=== PATIENT | female | born 1950 | race Caucasian/White ===

== ENCOUNTER 2023-10-01 13:21 | Outpatient (RCR) | payer MEDICARE, OTHER, SELFPAY | END 2023-10-01 23:59 | disposition home or self-care (01) | LOC: ROT 13:21 | PROVIDERS: ATTENDING PHYSICIAN Nurse Practitioner Family | DX: G20.C Parkinsonism, unspecified (principal); I69.320 Aphasia following cerebral infarction; I69.322 Dysarthria following cerebral infarction; I69.391 Dysphagia following cerebral infarction; R13.12 Dysphagia, oropharyngeal phase; R26.89 Other abnormalities of gait and mobility | CPT/HCPCS: 92507; 92523; 92526; 92610; 97010; 97110; 97116; 97140; 97163; 97167; 97530; 97535 ==

== ENCOUNTER 2023-10-30 09:38 | Outpatient (RCR) | payer MEDICARE, OTHER, SELFPAY | END 2023-10-30 23:59 | disposition home or self-care (01) | LOC: ROT 09:38 | PROVIDERS: ATTENDING PHYSICIAN Nurse Practitioner Family | DX: G20.C Parkinsonism, unspecified (principal); I69.398 Other sequelae of cerebral infarction; Z73.6 Limitation of activities due to disability; R26.9 Unspecified abnormalities of gait and mobility; I69.320 Aphasia following cerebral infarction; R47.1 Dysarthria and anarthria; R13.12 Dysphagia, oropharyngeal phase | CPT/HCPCS: 92507; 92526; 97010; 97110; 97116; 97140; 97530; 97535 ==

== ENCOUNTER 2023-11-25 12:00 | Outpatient (RCR) | payer MEDICARE, OTHER, SELFPAY | END 2023-11-26 07:38 | disposition home or self-care (01) | LOC: ROT 12:00 | PROVIDERS: ATTENDING PHYSICIAN Nurse Practitioner Family | DX: G20.C Parkinsonism, unspecified (principal); I69.320 Aphasia following cerebral infarction; R47.1 Dysarthria and anarthria; R13.12 Dysphagia, oropharyngeal phase; Z73.6 Limitation of activities due to disability; R26.89 Other abnormalities of gait and mobility; I69.312 Visuospatial deficit and spatial neglect following cerebral infarction; I69.328 Other speech and language deficits following cerebral infarction | CPT/HCPCS: 92507; 92526; 97010; 97110; 97116; 97140; 97530; 97535 ==

== ENCOUNTER 2024-03-20 23:05 | Emergency (ER) | payer MEDICARE, OTHER, SELFPAY ==
[2024-03-20 23:11] VITALS: BP 98/48
[2024-03-21] VITALS: BP 118/47
--- NOTE | 2024-03-21 | ED.GENMED ---
History of Present Illness
<Mariah Edwards MD, Resident - Last Filed: 03/21/24 01:05>
General
Chief Complaint: Change Level of Consciousness
Time Seen by Provider: 03/20/24 23:42
History of Present Illness
History of Present Illness:
74-year-old female presented to the ED with history of Parkinson disease and a CVA. Her family brought her in because she was not responding as usual after starting a new medication, Seroquel, prescribed by neurologist. Nephew has been taking care
of patient for today. She currently accompanied by her 2 daughters. 1 daughter states that the patient's current condition is at her baseline, but she becomes somewhat nonresponsive after taking the new medication which helps to calm her down.
The patient is not very agitated but occasionally pulls at stuffs or grabs stuffs mainly due to hallucination. She is alert and able to communicate. She is mildly aphasic due to CVA.
Phy Exam
<Mariah Edwards MD, Resident - Last Filed: 03/21/24 01:05>
Physical Exam
Physical Exam:
74-year-old elderly female, mildly aphasic but able to follow commands and answer few questions.
Cardiovascular Exam
Cardiovascular Exam: regular rate/rhythm and no murmur
Pulmonary Exam
Pulmonary Exam: lungs clear
Gastrointestinal Exam
Gastrointestinal Exam: non tender, soft and non distended
Neurological Exam
Neurological Exam: alert and motor weakness (chronic on left sided due to history of stroke )
Course
<Mariah Edwards MD, Resident - Last Filed: 03/21/24 01:05>
Orders/Labs/Results
Orders:
Orders
03/21/24 00:06
Electrocardiogram (*1) Urgent
Reason for Study: QTc Monitoring
Bedside Glucose- Treatment ONCE
EKG- Treatment ONCE
Abnormal Lab Results
03/21/24
00:50
POC Glucose 133 H mg/dl
(70-99)
Vital Signs
Initial and Last Documented VS:
Initial Vital Signs
Temp Pulse Resp BP Pulse Ox
98.1 F 55 16 98/48 98
03/20/24 23:11 03/20/24 23:11 03/20/24 23:11 03/20/24 23:11 03/20/24 23:11
Last Documented Vital Signs
Temp Pulse Resp BP Pulse Ox
98.1 F 65 24 118/47 98
03/20/24 23:11 03/21/24 00:00 03/21/24 00:00 03/21/24 00:00 03/21/24 00:00
<Blaze ePoples DO - Last Filed: 03/21/24 00:20>
Orders/Labs/Results
Orders:
Orders
03/21/24 00:06
Electrocardiogram (*1) Urgent
Reason for Study: QTc Monitoring
Bedside Glucose- Treatment ONCE
EKG- Treatment ONCE
Abnormal Lab Results
03/21/24
00:50
POC Glucose 133 H mg/dl
(70-99)
Vital Signs
Initial and Last Documented VS:
Initial Vital Signs
Temp Pulse Resp BP Pulse Ox
98.1 F 55 16 98/48 98
03/20/24 23:11 03/20/24 23:11 03/20/24 23:11 03/20/24 23:11 03/20/24 23:11
Last Documented Vital Signs
Temp Pulse Resp BP Pulse Ox
98.1 F 65 24 118/47 98
03/20/24 23:11 03/21/24 00:00 03/21/24 00:00 03/21/24 00:00 03/21/24 00:00
<Mariah Edwards MD, Resident - Last Filed: 03/21/24 01:05>
*Critical Care Note
Total Time (30-74mins, 75-104mins- exclusive of procedures): Not Applicable
<Mariah Edwards MD, Resident - Last Filed: 03/21/24 01:05>
Update Note
Update Note:
74-year-old female presented to the ED with history of Parkinson disease and a CVA. Her family brought her in because she was not responding as usual after starting a Seroquel which was recently started. The patient is advised to take only half the
pill. Patient is hemodynamically stable. She is responsive and is able to follow commands. On exam, left sided weakness which is chronic with history of CVA. Suspect more than half the pill given to the patient which could cause change in level of
consciousness. Will check EKG for Qtc monitoring and AccuCheck. If everything remains stable then will discharge patient home. Advised to follow up with neurologist for review of medication. No QT prolongation on EKG. Patient stable to be
discharged
ED Attending Note
<Mariah Edwards MD, Resident - Last Filed: 03/21/24 01:05>
-
Portions of this chart may have been created with voice recognition software.� Occasional wrong word or��sound alike� substitutions may have occurred due to the inherent limitations of voice recognition software.
<Blaze Peoples DO - Last Filed: 03/21/24 00:20>
ED Attending Note
Patient seen and examined by attending physician: Yes
I performed a history and physical exam of patient and discussed management with resident, I reviewed resident's note and agree with documented findings and plan of care.: Yes
ED Attending Note:
Seen with resident agree with assessment and plan, discussed with daughter who is the main caregiver at bedside patient is at her baseline mental status, apparently this evening had a new caregiver patient's new med looks to be Seroquel been on it
for a few weeks, will check EKG and Accu-Chek, daughter will be with her tonight, the follow-up with her PCP and neurologist to discuss further med changes or adjustments
Discharge Plan
Departure
Patient Disposition: Home (Routine Discharge)
Date of Disposition: 03/21/24
Time of Disposition: 01:03
Patient with high blood pressure during this ER visit?: No
Discharge Problem:
Change in level of consciousness
Prescriptions:
No Action
lisinopril 30 MG tablet
30 mg PO DAILY
docusate sodium [Colace] 100 MG capsule
10 ml PO BID
carbidopa-levodopa 1 TABLET tablet
2.5 tab PO TID
atorvastatin 10 MG tablet
10 mg PO QPM
amlodipine 10 MG tablet
10 mg PO DAILY
sertraline 25 MG tablet
25 mg PO DAILY
zonisamide 50 MG capsule
50 mg PO DAILY
melatonin 10 MG tablet
10 mg PO DAILY
Milk of Magnesia
15 ml PO DAILY
Referrals:
UNKNOWN - PT DOES,NOT KNOW [Family Provider] -
Interventions
Interventions:
*Risk Screen - Suicide Last Done: 03/21/24 00:06
*General Assessment Last Done: 03/21/24 00:04
*Neglect/Abuse Screening Last Done: 03/21/24 00:04
ED- Cardiac Assessment Last Done: 03/21/24 00:03
ED- Neurological Assessment Last Done: 03/21/24 00:03
ED-Psychological Assessment Last Done: 03/21/24 00:03
ED- Pulmonary Assessment Last Done: 03/21/24 00:03
Discharge Date and Time
Print Language: MALTESE
[2024-03-21 00:52] LABS: Glucose - Point of Care 133 mg/dl (70-99)
[2024-03-21 01:00] VITALS: BP 130/52
== END 2024-03-21 01:27 | disposition home or self-care (01) ==
LOC: EMR 23:05
PROVIDERS: EMERGENCY PHYSICIAN Emergency Medicine
DX: R41.82 Altered mental status, unspecified (principal); G20.A1 Parkinson's disease without dyskinesia, without mention of fluctuations
CPT/HCPCS: 99282; 82962; 93005